=== PATIENT | female | born 1965 | race Native Hawaiian/Other Pacific Islander ===

== ENCOUNTER 2017-03-16 14:58 | Outpatient (CLI) | payer BC | END 2017-03-16 16:00 | disposition home or self-care (01) | LOC: MAMMO 14:58 | DX: Z12.31 Encounter for screening mammogram for malignant neoplasm of breast (principal) ==

== ENCOUNTER 2017-05-29 13:07 | Outpatient (CLI) | payer BC | END 2017-05-29 14:10 | disposition home or self-care (01) | LOC: RAD 13:07 | DX: M81.0 Age-related osteoporosis without current pathological fracture (principal); E83.52 Hypercalcemia ==

== ENCOUNTER 2018-03-24 15:10 | Outpatient (CLI) | payer BC | END 2018-03-24 21:06 | disposition home or self-care (01) | LOC: MAMMO 15:10 | DX: Z12.31 Encounter for screening mammogram for malignant neoplasm of breast (principal) ==

== ENCOUNTER 2019-08-08 14:12 | Outpatient (CLI) | payer OTHER | END 2019-08-08 19:11 | disposition home or self-care (01) | LOC: MAMMO 14:12 | DX: Z12.31 Encounter for screening mammogram for malignant neoplasm of breast (principal) ==

== ENCOUNTER 2019-11-03 11:30 | Outpatient (CLI) | payer OTHER ==
[2019-11-03 12:17] LABS: PLATELET COUNT 270 K/uL (152-353)
[2019-11-03 12:58] LABS: POTASSIUM 4.3 mmol/L (3.6-5.2)
== END 2019-11-03 20:09 | disposition home or self-care (01) ==
LOC: LAB 11:30
PROVIDERS: Internal Medicine
DX: I10 Essential (primary) hypertension (principal)
CPT/HCPCS: 80053; 80061; 81000; 84439; 84443; 85027

== ENCOUNTER 2021-05-16 08:22 | Outpatient (CLI) | payer OTHER | END 2021-05-16 19:15 | disposition home or self-care (01) | LOC: MAMMO 08:22 | PROVIDERS: ATTEND Specialist | DX: Z12.31 Encounter for screening mammogram for malignant neoplasm of breast (principal) ==

== ENCOUNTER 2021-08-13 13:12 | Outpatient (CLI) | payer OTHER ==
[2021-08-13 13:33] LABS: PLATELET COUNT 257 K/uL (152-353)
[2021-08-13 13:51] LABS: POTASSIUM 4.4 mmol/L (3.6-5.2)
== END 2021-08-13 19:02 | disposition home or self-care (01) ==
LOC: LAB 13:12
PROVIDERS: ATTEND Internal Medicine
DX: I10 Essential (primary) hypertension (principal); E03.9 Hypothyroidism, unspecified
CPT/HCPCS: 80053; 80061; 81000; 84439; 84443; 85027

== ENCOUNTER 2021-08-21 07:51 | Outpatient (CLI) | payer OTHER | END 2021-08-21 19:08 | disposition home or self-care (01) | LOC: US 07:51 | PROVIDERS: ATTEND Internal Medicine | DX: R79.89 Other specified abnormal findings of blood chemistry (principal) ==

== ENCOUNTER 2021-09-27 07:59 | Outpatient (CLI) | payer OTHER | END 2021-09-27 20:46 | disposition home or self-care (01) | LOC: CT 07:59 | DX: R22.1 Localized swelling, mass and lump, neck (principal) | CPT/HCPCS: 36415; 82565; 84520; Q9963 ==

== ENCOUNTER 2021-11-18 10:12 | Outpatient (CLI) | payer OTHER ==
[2021-11-18 10:24] LABS: PLATELET COUNT 322 K/uL (152-353)
[2021-11-18 10:48] LABS: POTASSIUM 4.1 mmol/L (3.6-5.2)
== END 2021-11-18 18:59 | disposition home or self-care (01) ==
LOC: LABW 10:12
PROVIDERS: ATTEND Internal Medicine
DX: I10 Essential (primary) hypertension (principal)
CPT/HCPCS: 36415; 80053; 84439; 84443; 85027

== ENCOUNTER 2022-02-04 14:34 | Outpatient (CLI) | payer OTHER ==
[2022-02-04 14:42] LABS: PLATELET COUNT 276 K/uL (152-353)
[2022-02-04 14:58] LABS: POTASSIUM 4.2 mmol/L (3.6-5.2)
== END 2022-02-04 20:19 | disposition home or self-care (01) ==
LOC: LAB 14:34
PROVIDERS: ATTEND Internal Medicine
DX: I10 Essential (primary) hypertension (principal)
CPT/HCPCS: 80053; 80061; 85027

== ENCOUNTER 2022-02-14 15:42 | Outpatient (CLI) | payer OTHER | END 2022-02-14 19:12 | disposition home or self-care (01) | LOC: US 15:42 | PROVIDERS: ATTEND Internal Medicine | DX: E04.1 Nontoxic single thyroid nodule (principal) ==

== ENCOUNTER 2022-05-27 09:47 | Outpatient (CLI) | payer OTHER | END 2022-05-27 20:58 | disposition home or self-care (01) | LOC: MAMMO 09:47 | PROVIDERS: ATTEND Specialist | DX: Z12.31 Encounter for screening mammogram for malignant neoplasm of breast (principal) ==

== ENCOUNTER 2022-08-14 13:31 | Outpatient (CLI) | payer OTHER ==
[2022-08-14 14:25] LABS: PLATELET COUNT 275 K/uL (152-353)
[2022-08-14 15:42] LABS: POTASSIUM 4.2 mmol/L (3.6-5.2)
== END 2022-08-14 21:26 | disposition home or self-care (01) ==
LOC: LAB 13:31
PROVIDERS: ATTEND Internal Medicine
DX: I10 Essential (primary) hypertension (principal)
CPT/HCPCS: 80053; 80061; 81002; 84439; 84443; 85027

== ENCOUNTER 2023-04-09 12:30 | Outpatient (CLI) | payer OTHER ==
[2023-04-09 13:20] LABS: POTASSIUM 4.3 mmol/L (3.6-5.2)
[2023-04-09 13:21] LABS: PLATELET COUNT 272 K/uL (152-353)
== END 2023-04-09 19:59 | disposition home or self-care (01) ==
LOC: LAB 12:30
PROVIDERS: ATTEND Internal Medicine
DX: E03.8 Other specified hypothyroidism (principal); I10 Essential (primary) hypertension; R82.998 Other abnormal findings in urine
CPT/HCPCS: 80053; 80061; 81000; 84439; 84443; 85027; 87077; 87086; 87088; 87186